=== PATIENT | female | born 1990 | race Caucasian/White ===

== ENCOUNTER 2017-11-13 16:48 | Inpatient (IN) ==
[2017-11-13 16:08] LABS: Basophils # 0.1 K/mcL (0.0-0.2); Basophils % 0.4 %; Eosinophils # 0.1 K/mcL (0.0-0.6); Eosinophils % 0.4 %; Hematocrit 36.1 % (35.3-44.9); Hemoglobin 12.1 g/dL (11.5-15.4); Immature Granulocytes % 2.8 % (0-4); Lymphocytes # 2.1 K/mcL (0.6-4.6); Lymphocytes % 10.1 %; Mean Corpuscular HGB Conc 33.5 g/dL (31.6-35.5); Mean Corpuscular Volume 86.6 fL (83.0-100.0); Mean Platelet Volume 12.2 fL (9.4-12.4); Monocytes # 1.4 K/mcL (0.0-1.3); Monocytes % 6.8 %; Platelet Count 336 K/mcL (140-400); Red Blood Count 4.17 M/mcL (3.82-4.97); Red Cell Distribution Width 13.2 % (11.5-14.5); Segmented Neutrophils % 79.5 %
[2017-11-13 16:14] LABS: Bilirubin,Urine Negative (Negative); Blood,Urine Negative (Negative); Clarity,Urine Clear (Clear); Color,Urine Yellow (Yellow); Glucose,Urine (UA) Normal (Normal); Ketones,Urine Negative (Negative); Leukocyte Esterase,Urine Trace (Negative); Nitrite,Urine Negative (Negative); Protein,Urine Trace mg/dL (Neg-Trace); Specific Gravity,Urine 1.022 (1.010-1.025); Urobilinogen,Urine Normal (Normal)
[2017-11-13 16:15] LABS: Bacteria,Urine Few per hpf (None-Few); Hyaline Casts,Urine None Seen per lpf (None-Few); RBC,Urine 0-3 per hpf (0-3); Squamous Epithelial Cell,Urine Many per lpf (None-Few)
--- NOTE | 2017-11-13 16:18 | OB/GYN History & Physical ---
Date of Encounter: 11/13/17 Time of Encounter: 16:07 Assessment and Plan (1) 38 weeks gestation of Current visit: Yes Status: Acute Anticipate vaginal delivery (2) Marijuana abuse Current visit: Yes Status: Acute Pt reports using THC throughout her . Utox pending. Will place SW consult. 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 Pt aware of risk of having CF. (4) Carrier of fragile X chromosome Current visit: Yes Status: Acute (5) Spontaneous onset of labor Current visit: Yes Status: Acute Admit for expectant management. Epidural if requested. Anticipate . History of Present Illness HPI: Ms. Rodriguez is a 27 year old female at 38w5d who presents with contractions. complicated by mother's status as a Fragile X premutation carrier and cystic fibrosis carrier. Reports good FM, denies LOF and VB. Pt reports using THC throughout her , denies tobacco or other illicit drugs. O Positive GBS Negative Rubella immune HIV, Hep B, syphillis Negative Utox THC positive 03/2017 Past Med Surg Social Fam HX - Past Medical History Medical history: no medical history - Past Surgical History Surgical History: no surgical history - Social History Smoking Status: Never smoker Alcohol use: none Drug use: marijuana - Family History Mother Living Status: Still Living Hx Family Cardiac Disorders: No Hx Family Respiratory Disorders: No Hx Family Cancer: No Hx Family GI Disorders: No Hx Family Genitourinary Disorders: No Hx Family Endocrine Disorder: No Hx Family Musculoskeletal Disorders: No Hx Family Neuromuscular Disorders: No Hx Family Neurologic Disorders: No Hx Family HEENT Disorders: No Hx Family Autoimmune Disorders: No Hx Family Reproductive Disorders: No Hx Family Psychosocial Disorders: No Hx Family Medical Disorders: No Obstetrical History - Pregnancies : 2 Para: 0 Term: 0 : 0 Ab's: 1 Livin Medications and Allergies No Known Home Drugs 11/13/17 [History] 3 Allergy/AdvReac Type Severity Reaction Status Date / Time No Known Allergies Allergy Verified 11/13/17 15:31 Review of System OB All systems PM: reviewed and no additional remarkable complaints except as stated Exam - Constitutional Constitutional: well developed, well nourished, average body habitus - Lungs Respiratory exam: CTAB - Cardiovascular Cardiovascular exam: RRR, +S1, +S2 - Abdomen Abdomen: Present: bowel sounds normal, gravid, non tender - Extremities Extremities exam: normal inspection - Cervix Dilation: 5 (inital exam 4cm) Effacement: 90 Station: 0 - Anus/Rectum Anus/Rectum: Present: normal perianal skin Results Result Diagrams: 11/13/17 15:50 11/13/17 15:50 All other labs normal.
[2017-11-13 16:26] LABS: Alanine Aminotransferase 15 Units/L (7-52); Aspartate Amino Transferase 17 Units/L (13-39); BUN/Creatinine Ratio 14 (6-26); Blood Urea Nitrogen 7 mg/dL (6-20); Lactate Dehydrogenase 178 Units/L (140-271); Uric Acid 6.1 mg/dL (2.3-7.6); eGFR For Non-African Americans > 60 (> 60)
[2017-11-13 16:29] LABS: Protein/Creatinine Ratio,Urine 0.18 mg/mg (0.00-0.20)
[~2017-11-13 16:48] MED LIST: *HR* Nalbuphine 10 MG/ML AMPUL IVP PRN; Famotidine 20 MG/2 ML VIAL IVP PRN; Naloxone 0.4 MG/ML INJ IVP PRN; Ondansetron 4 MG/2 ML VIAL IVP PRN
[2017-11-13] MEDS ORDERED: Ringers Solution, Lactated 1,000 ML ONE ×2 (16:50→18:34)
[2017-11-13] MEDS ORDERED: *HR* FentaNYL (PF) 100 MCG/2 ML VIAL EP ONE (17:15)
[2017-11-13] MEDS ORDERED: Epidural Premix (fent/bupiv) 110 ML EP SCH (17:15)
[2017-11-13] MEDS ORDERED: Bupivacaine-MPF 0.25% 10 ML VIAL EP ONE (17:15)
[2017-11-13] MEDS ORDERED: *HR* FentaNYL (PF) 100 MCG/2 ML VIAL ONE (17:18)
[2017-11-13] MEDS ORDERED: Bupivacaine-MPF 0.25% 10 ML VIAL ONE (17:18)
[2017-11-13] MEDS ORDERED: Lidocaine -MPF 2% 5 ML VIAL ONE (17:18)
[2017-11-13] MEDS ORDERED: Epidural Premix (fent/bupiv) 110 ML EP ONE (17:20)
--- NOTE | 2017-11-13 19:02 | OB Labor Progress Note ---
Date of Encounter: 11/13/17 Time of Encounter: 19:00 Labor Progress Note - Subjective Subjective: Pt comfortable with epidural. - Cervix Cervix: 8/100/0 - Heart Tones Heart Tones: Category I - [place]: 2-3 minutes - Interventions Interventions: AROM for small amount clear fluid - Plan Plan: Continue to monitor. Anticipate .
--- NOTE | 2017-11-13 19:07 | Anesthesia Evaluation PreOp ---
Date of Encounter: 11/13/17 Time of Encounter: 17:20 - Past History Planned Operation: labor epidural Cardiac History: Denies any Significant Hx Pulmonary History: Former smoker HYDRAULIC PRESS OPERATOR History: Denies Any Significant HX Other Medical History: Denies Any Significant HX Anesthesia History: No Prior Anesthetic Complications (has never had GA. No FHAP.) Alcohol Use: none Drug use: marijuana Medications and Allergies No Known Home Drugs 11/13/17 [History] 3 Allergy/AdvReac Type Severity Reaction Status Date / Time No Known Allergies Allergy Verified 11/13/17 15:31 - Meds/Allergy Pre-op Review Medications Reviewed: Yes Allergies Reviewed: Yes Beta Blockers on Current Med List: No Anesthesia Results - Labs 11/13/17 15:50 11/13/17 15:50 Anesthesia Exam 126/70, 88, 16. FHTs 150s. Height: 5'7" Weight: 69kg NPO (# of Hours): 6 Pain Scale: 9 Pain Scale Used: Numeric (1 - 10) - HEENT Pupil (Motor): Pupils equal, EOMI Mallampati: II Teeth: Normal (has chip to upper left incisor.) Oral Opening: Greater than 3 - HYDRAULIC PRESS OPERATOR LOC: Oriented HYDRAULIC PRESS OPERATOR Motor: Normal RUE, Normal LUE, Normal RLE, Normal LLE, Normal Face HYDRAULIC PRESS OPERATOR Sensory: Normal: RUE, LUE, RLE, LLE, Face - Cardiac Rhythm: Regular - Pulmonary Breath Sounds: bilateral Clear Respiratory Effort: Symmetrical Anesthesia Assess/Plan ASA Score: 2 Modified [place] Scale for Level of Consciousness: Cooperative, oriented, and tranquil Anesthetic Plan: Regional Monitoring Plan: Standard Monitors
--- NOTE | 2017-11-13 19:11 | Anesthesia Procedures ---
Date of Encounter: 11/13/17 Time of Encounter: 17:34 Procedures: Anesthesia - Epidural/Spinal Patient ID/Chart reviewed: Yes Patient examined: Yes OB Eval: Gestational age: 38 OB Eval: : 2 OB Eval: Hx Para: 0 OB Eval: Dilated at (cm): 6 OB Eval: Contractions: Non-stressed pattern Consent Obtained: Yes Supplemental Oxygen: None/Room Air Site Prep: Aseptic Technique, Sterile prep and drape, Povidone-Iodine 1% Patient position: upright Local Anesthetic: Lidocaine 1% Amount of Local Anesthetic used: 3 Touhy Needle Gauge: 18 Touhy Needle Depth (cm): 6 Catheter Depth at Skin (cm): 15 Test Dose (1.5% Lido + Epi): Volume given (mls): 3 Test Dose Result: Negative Loading Dose: 0.25% Marcaine (mls): 8 Loading Dose: Fentanyl (mcg): 100 Loading Dose Administered: Thru Catheter Infusion Med: 0.125% Bupivacaine w/ 2 mcg/ml Fentanyl Infusion Rate (mls/hr): [address]: Tegaderm, Tape Interspace Used: L3-L4 Loss of Resistance (ARACELIS): Yes Blood: No CSF: No Paresthesia: No Vitals + FHT's: 3 Vital Signs Time 1734 1746 1750 1755 BP 124/62 120/73 115/67 137/77 Pulse 82 97 86 81 FHTs 150 150 150 150
[2017-11-13] MEDS ORDERED: Oxytocin 20 units/ LR 1000 mL 20 UNIT/1,000 ML BAG IVC ONE (19:29)
--- NOTE | 2017-11-13 20:49 | OB/GYN Procedure Note ---
Delivery - Delivery Date: 11/13/17 Provider: Ashely Velazquez Intrapartum events: none Delivery induction: none Delivery augmentation: rupture of membranes Delivery monitor: external FHT, external uterine Anesthesia: epidural Quantitated Blood Loss: 100 - Infant (s) Infant A Infant Delivery Date: 11/13/17 Infant Delivery Time: 20:16 Presentation: vertex Position: DARRIAN Route of delivery: Gender: Male Viability: Viable Pounds: 6 Ounces: 2 Weight Gram: 2790 kg at 1 minute: 9 at 5 mins: 9 Shoulder Dystocia: not encountered Specimens collected: cord blood Placenta: spontaneous Cord: 3 umbilical vessels - Repair Episiotomy: none Laceration Description: Labial (hemostatic), Superficial - Complications Delivery complications: none Delivery comments: Pt presented in active labor and progressed normally to for viable male infant weighing 5brl7le with apgars 9 at one minute and 9 at five minutes. After pulsations ceased the cord was clamped and cut and the placenta delivered spontaneous and intact. Bilateral superficial labial lacerations were found to be hemostatic and not repaired. EBL 100ml. Mother and baby stable in kangaroo care following procedure. - Disposition Mom disposition: stable in LDR [place] disposition: stable in LDR
[2017-11-13] MEDS ORDERED: Rho Immune Globulin 1,500 UNIT SYRINGE IM PRN (22:56)
[2017-11-13] MEDS ORDERED: Measles/Mumps/Rubella Vacc 0.5 ML VIAL SQ PRN (22:56)
[2017-11-13] MEDS ORDERED: Benzocaine/Menthol 56 GM AEROSOL SPRAY TP PRN (22:56)
[2017-11-13] MEDS ORDERED: Oxytocin 20 units/ LR 1000 mL 20 UNIT/1,000 ML BAG IVC SCH (22:56)
[2017-11-13] MEDS: Ibuprofen 600 MG TABLET PO PRN (23:21)
[2017-11-14] MEDS: Prenatal Vit/FA 1 EACH TABLET PO SCH (07:55)
[2017-11-14] MEDS: Ibuprofen 600 MG TABLET PO PRN ×2 (07:55→16:38)
--- NOTE | 2017-11-14 08:43 | OB/GYN Progress Note ---
Date of Encounter: 11/14/17 Time of Encounter: 08:40 - Assessment and Plan (1) Vaginal delivery Current Visit: Yes Status: Acute Continue current management plan. Anticipate discharge tomorrow. Subjective - Subjective Principal diagnosis: vaginal delivery Interval history: Patient states that she is currently doing well. Has no complaints at this time. Is eating well. Urinating well. Reports passing gas, but no bowel movement. No headaches, blurry vision, blurred surety swelling. No elevated blood pressures reported in the last 12 hours. Patient reports: appetite normal, voiding normally, pain well controlled, ambulating normally : doing well, bottle feeding Objective - Latest Vital Signs Latest vital signs: Vital Signs Temp Pulse Resp BP Pulse Ox 11/14/17 07:45 97.8 F 92 14 133/84 98 11/14/17 01:00 98.2 F 102 16 122/80 98 11/14/17 00:00 98.4 F 99 16 138/79 97 11/13/17 23:00 98.4 F 96 14 128/77 97 Intake and Output 11/13/17 11/14/17 11/14/17 23:59 07:59 15:59 Intake Total 200 / 200 Output Total 75 / 75 600 / 600 Balance -75 / -75 -400 / -400 Intake: Oral 200 / 200 Output: Urine 75 / 75 600 / 600 Other: Weight 64.7 kg - Exam Lungs: bilateral: normal Chest: Normal S1, Normal S2 Extremities: Present: normal Abdomen: Present: normal appearance, soft. Absent: distention Uterus: Present: normal Uterus Position: 1 Finger Below Umbilicus - Labs Labs: Laboratory Results - last 24 hr 11/13/17 11/13/17 11/13/17 15:50 15:50 15:50 WBC 20.2 H RBC 4.17 Hgb 12.1 Hct 36.1 MCV 86.6 MCH 29.0 MCHC 33.5 RDW 13.2 Plt Count 336 MPV 12.2 Immature Gran % 2.8 Seg Neutrophils % 79.5 Lymphocytes % 10.1 Monocytes % 6.8 Eosinophils % 0.4 Basophils % 0.4 Neutrophils # 16.0 H Lymphocytes # 2.1 Monocytes # 1.4 H Eosinophils # 0.1 Basophils # 0.1 BUN Creatinine Est GFR ( Amer) Est GFR (Non-Af Amer) BUN/Creatinine Ratio Uric Acid AST ALT Lactate Dehydrogenase Urine Color Yellow Urine Clarity Clear Urine pH 7.0 Ur Specific [place] 1.022 Urine Protein Trace Urine Glucose (UA) Normal Urine Ketones Negative Urine Blood Negative Urine Nitrite Negative Urine Bilirubin Negative Urine Urobilinogen Normal Ur Leukocyte Esterase Trace H Urine Microscopic RBC 0-3 Urine Microscopic WBC 5-15 H Ur Squamous Epith Cells Many H Urine Bacteria Few Hyaline Casts None Seen Urine Creatinine 148 Protein/Creatinin Ratio 0.18 Urine Total Protein 26 H 11/13/ 15:50 WBC RBC Hgb Hct MCV MCH MCHC RDW Plt Count MPV Immature Gran % Seg Neutrophils % Lymphocytes % Monocytes % Eosinophils % Basophils % Neutrophils # Lymphocytes # Monocytes # Eosinophils # Basophils # BUN 7 Creatinine 0.50 L Est GFR ( Amer) > 60 Est GFR (Non-Af Amer) > 60 BUN/Creatinine Ratio 14 Uric Acid 6.1 AST 17 ALT 15 Lactate Dehydrogenase 178 Urine Color Urine Clarity Urine pH Ur Specific [place] Urine Protein Urine Glucose (UA) Urine Ketones Urine Blood Urine Nitrite Urine Bilirubin Urine Urobilinogen Ur Leukocyte Esterase Urine Microscopic RBC Urine Microscopic WBC Ur Squamous Epith Cells Urine Bacteria Hyaline Casts Urine Creatinine Protein/Creatinin Ratio Urine Total Protein
[2017-11-14] MEDS: Acetaminophen 325 MG TABLET PO PRN (20:28)
[2017-11-15] MEDS: Ibuprofen 600 MG TABLET PO PRN ×2 (02:35→08:17)
[2017-11-15] MEDS: Acetaminophen 325 MG TABLET PO PRN (04:12)
[2017-11-15] MEDS: Prenatal Vit/FA 1 EACH TABLET PO SCH (08:17)
[2017-11-15 08:42] VITALS: BP 128/89
--- NOTE | 2017-11-15 09:26 | Discharge Summary ---
Date of Encounter: 11/15/17 Time of Encounter: 09:23 - Discharge Diagnosis (1) Vaginal delivery Priority: Primary Status: Acute Comments: S/P vaginal delivery day 2 Pain is well controlled Lochia is light and without clots VSS Tolerating regular diet; passing flatus Urinating without difficulty Bottle feeding Discharge home today - Discharge Medications Prescriptions: Ibuprofen [Motrin] 600 mg PO Q6HR PRN #30 tablet PRN Reason: Cramping Docusate [Colace] 100 mg PO BID PRN #30 capsule PRN Reason: Constipation Ferrous Sulfate 325 mg PO DAILY #90 tablet Home Medications: Acetaminophen [Tylenol] 650 mg PO Q6HR PRN tablet 11/15/17 [Rx] Benzocaine/Menthol [place] [Dermoplast [place]] 1 appl TP QID PRN aerosol 11/15/17 [Rx] Docusate [Colace] 100 mg PO BID PRN #30 capsule 11/15/17 [Rx] Ferrous Sulfate 325 mg PO DAILY #90 tablet 11/15/17 [Rx] Ibuprofen [Motrin] 600 mg PO Q6HR PRN #30 tablet 11/15/17 [Rx] Vit/FA 1 each PO DAILY tablet 11/15/17 [Rx] Allergies/Adverse Reactions: 3 Allergy/AdvReac Type Severity Reaction Status Date / Time No Known Allergies Allergy Verified 11/13/17 15:31 Data Procedures and tests throughout hospitalization: Laboratory Tests 11/13/17 11/13/17 11/13/17 15:50 15:50 15:50 WBC 20.2 H RBC 4.17 Hgb 12.1 Hct 36.1 MCV 86.6 MCH 29.0 MCHC 33.5 RDW 13.2 Plt Count 336 MPV 12.2 Immature Gran % 2.8 Seg Neutrophils % 79.5 Lymphocytes % 10.1 Monocytes % 6.8 Eosinophils % 0.4 Basophils % 0.4 Neutrophils # 16.0 H Lymphocytes # 2.1 Monocytes # 1.4 H Eosinophils # 0.1 Basophils # 0.1 BUN Creatinine Est GFR ( Amer) Est GFR (Non-Af Amer) BUN/Creatinine Ratio Uric Acid AST ALT Lactate Dehydrogenase Urine Color Yellow Urine Clarity Clear Urine pH 7.0 Ur Specific [place] 1.022 Urine Protein Trace Urine Glucose (UA) Normal Urine Ketones Negative Urine Blood Negative Urine Nitrite Negative Urine Bilirubin Negative Urine Urobilinogen Normal Ur Leukocyte Esterase Trace H Urine Microscopic RBC 0-3 Urine Microscopic WBC 5-15 H Ur Squamous Epith Cells Many H Urine Bacteria Few Hyaline Casts None Seen Urine Creatinine 148 Protein/Creatinin Ratio 0.18 Urine Total Protein 26 H 11/13/17 15:50 WBC RBC Hgb Hct MCV MCH MCHC RDW Plt Count MPV Immature Gran % Seg Neutrophils % Lymphocytes % Monocytes % Eosinophils % Basophils % Neutrophils # Lymphocytes # Monocytes # Eosinophils # Basophils # BUN 7 Creatinine 0.50 L Est GFR ( Amer) > 60 Est GFR (Non-Af Amer) > 60 BUN/Creatinine Ratio 14 Uric Acid 6.1 AST 17 ALT 15 Lactate Dehydrogenase 178 Urine Color Urine Clarity Urine pH Ur Specific [place] Urine Protein Urine Glucose (UA) Urine Ketones Urine Blood Urine Nitrite Urine Bilirubin Urine Urobilinogen Ur Leukocyte Esterase Urine Microscopic RBC Urine Microscopic WBC Ur Squamous Epith Cells Urine Bacteria Hyaline Casts Urine Creatinine Protein/Creatinin Ratio Urine Total Protein Date of admission: 11/13/17 16:49 Primary care physician: PCP NONE Consults: 11/13/17 16:47 Consult to Wheelchair Rental Clerk (W&C) [CONS] Routine Reason For Exam: Reason for SW Consult: THC use 11/13/17 22:56 Consult to Furnace Packer [CONS] Routine Comment: Vaginal delivery, consult needed Discharging clinician: Renita East Anticipated date of discharge: 11/15/17 - Patient Status Disposition: Home, Self-Care Condition: Good Functional capacity at discharge: independent ambulation Overall status at discharge: patient is progressing back to baseline - Discharge Instructions Follow Up With: NONE,PCP [Primary Care Provider] - Ashely Velazquez CNM [Non-Partnered Physician] - - Diet and Activity Activity: increase activity as tolerated Diet: regular diet Hospital Course Reason for admission: IUP at term Delivery: Episiotomy: none Laceration: none Other procedures: none complications: none Discharge diagnosis: IUP at term delivered baby: male Time Attestation: Total time spent providing and/or coordinating discharge services: Time Spent: Less than 30 minutes Exam - Constitutional Vitals: Temp Pulse Resp BP Pulse Ox 97.8 F 69 16 128/89 99 11/15/17 07:20 11/15/17 07:20 11/15/17 07:20 11/15/17 07:20 11/14/17 19:55 General appearance IM: cooperative, A&O X 3, pleasant - Respiratory Respiratory exam: Present: CTAB - Cardiovascular Cardiovascular exam IM: Present: RRR, +S1, +S2 - GI/Abdominal GI/Abdominal exam IM: normal bowel sounds, soft - Rectal Rectal exam: deferred - Uterine Tone: Firm Uterus Position: At Umbilicus, Midline - Extremities Exam Extremities exam IM: Present: normal capillary refill, normal inspection, radial pulses palpable and symmetrical - Neurological Exam Neurological exam: alert, oriented X3
== END 2017-11-15 11:30 | disposition home or self-care (01) | DRG 775 ==
LOC: 1NENULAB → 1NENUOBS 23:07
PROVIDERS: ADMIT Registered Nurse; ATTEND Registered Nurse